=== PATIENT | male | born 1975 | race African-American/Black ===

== ENCOUNTER 2017-04-22 04:11 | Emergency (ER) | payer OTHER ==
[2017-04-22 04:43] VITALS: TEMP 97.4
[2017-04-22] MEDS ORDERED: Lactated Ringer's 1,000 ML IV STA (05:04)
[2017-04-22] MEDS ORDERED: Lactated Ringer's 1,000 ML ONE (05:32)
[2017-04-22 05:39] LABS: BASO % 0.6 % (0.0-2.0); EOS # 0.1 K/uL (0.0-0.7); EOS % 0.9 % (0.0-4.0); HEMATOCRIT 41.4 % (35.0-51.0); LYMPH # 2.4 K/uL (1.0-4.3); LYMPH % 27.4 % (20.0-40.0); MEAN CELL VOLUME 84.3 fL (80.0-94.0); MEAN CORPUSCULAR HEMOGLOBIN 28.8 pg (27.0-31.0); MEAN CORPUSCULAR HGB CONC 34.1 g/dL (33.0-37.0); MEAN PLATELET VOLUME 6.4 fL (7.2-11.7); MONO # 0.9 K/uL (0.0-0.8); MONO % 10.7 % (0.0-10.0); NRBC % 0.1 % (0.0-2.0); RED CELL DISTRIBUTION WIDTH 13.4 % (11.5-14.5); WHITE BLOOD COUNT 8.7 K/uL (4.8-10.8)
[2017-04-22 05:55] LABS: RBC URINE 20 /hpf (0-3); URINE BACTERIA RARE (<OCC); URINE BILIRUBIN NEGATIVE (NEGATIVE); URINE COLOR Yellow (YELLOW); URINE GLUCOSE (UA) NORMAL (Normal); URINE KETONE NEGATIVE (NEGATIVE); URINE LEUKOCYTE ESTERASE 1+ Leu/uL (Negative); URINE PROTEIN 1+ mg/dL (NEGATIVE); URINE UROBILINOGEN NORMAL mg/dL (0.2-1.0); WBC URINE 4 /hpf (0-5)
[2017-04-22 05:59] LABS: ALB/GLOB RATIO 1.1 (1.0-2.1); ALKALINE PHOSPHATASE 73 U/L (38-126); ALT/SGPT 48 U/L (21-72); AST/SGOT 31 U/L (17-59); BILIRUBIN,TOTAL 0.5 mg/dL (0.2-1.3); BLOOD UREA NITROGEN 15 mg/dL (9-20); CALCIUM 8.3 mg/dl (8.6-10.4); CARBON DIOXIDE 24 mmol/L (22-30); CHLORIDE 100 mmol/L (98-107); GFR AFRICAN-AMERICAN > 60; GLUCOSE,RANDOM 122 mg/dL (75-110); POTASSIUM 3.5 mmol/L (3.6-5.2); SODIUM 136 mmol/L (132-148); TOTAL PROTEIN 7.8 g/dL (6.3-8.3)
--- NOTE | 2017-04-22 06:01 | C.PDOC ---
History Of Present Illness 42 year old male presents to the ER with a complaint of sudden onset of RUQ pain and nausea. Denies UTI symptoms, vomiting, diarrhea or cough. No past h/o of similar pain. Time Seen by Provider: 04/22/17 04:42 Chief Complaint (Nursing): Abdominal Pain History Per: Patient History/Exam Limitations: no limitations Onset/Duration Of Symptoms: Hrs Current Symptoms Are (Timing): Still Present Location Of Pain/Discomfort: RUQ Radiation Of Pain To:: None Quality Of Discomfort: Unable To Describe Associated Symptoms: Nausea. denies: Fever, Chills, Vomiting, Urinary Symptoms Exacerbating Factors: None Alleviating Factors: None Recent travel outside of the [place]: No Past Medical History Reviewed: Historical Data, Nursing Documentation, Vital Signs Vital Signs: Last Vital Signs Temp 97.4 F L 04/22/17 04:39 Pulse 80 04/22/17 04:39 Resp 20 04/22/17 04:39 BP 159/108 H 04/22/17 04:39 Pulse Ox 99 04/22/17 06:02 - Medical History PMH: Migraine Surgical History: No Surg Hx Family History: States: Unknown Family Hx - Social History Hx Tobacco Use: No Hx Alcohol Use: Yes Hx Substance Use: No - Immunization History Hx Tetanus Toxoid Vaccination: No Hx Influenza Vaccination: Yes Hx Pneumococcal Vaccination: No Review Of Systems Constitutional: Negative for: Fever, Chills Gastrointestinal: Positive for: Nausea, Abdominal Pain. Negative for: Vomiting , Diarrhea, Constipation Genitourinary: Negative for: Dysuria, Hematuria Physical Exam - Physical Exam Appears: Non-toxic, No Acute Distress Skin: Normal Color, Warm, Dry Eye(s): bilateral: Normal Inspection Oral Mucosa: Moist Cardiovascular: Rhythm Regular Respiratory: Normal Breath Sounds, No Rales, No Rhonchi, No Wheezing Gastrointestinal/Abdominal: Bowel Sounds (normal), Soft, Tenderness (Diffusely) , Distention, No Guarding, No Rebound Back: Normal Inspection, No CVA Tenderness Neurological/Psych: Oriented x3, Normal Speech Gait: Steady ED Course And Treatment - Laboratory Results Result Diagrams: 04/22/17 05:20 04/22/17 05:20 O2 Sat by Pulse Oximetry: 99 (Room air) Pulse Ox Interpretation: Normal Progress Note: CT abd/pel, blood work, and urinalysis ordered. IV fluids, toradol, and zofran administered. 0630: Pt reports some improvement of the pain , but still 6/10. Pt is pending Abd/ pelvis CT. Pt is s/o to [facility] for disposition Disposition - Disposition Disposition Time: 06:55 Condition: STABLE Forms: [facility] (Wolof) - Clinical Impression Clinical Impression: Abdominal pain - Scribe Statement The provider has reviewed the documentation as recorded by the Scribe Anjum Brennan All medical record entries made by the Scribe were at my direction and personally dictated by me. I have reviewed the chart and agree that the record accurately reflects my personal performance of the history, physical exam, medical decision making, and the department course for this patient. I have also personally directed, reviewed, and agree with the discharge instructions and disposition. Physician Patient Turnover Patient Signed Over To: Shefali Gaxiola Handoff Comments: Pending Abd Ct and reeval
[2017-04-22 06:02] LABS: URINE BLOOD 2+ (NEGATIVE)
[2017-04-22] MEDS ORDERED: Iodixanol 320 MG/ML 100 ML BOTTLE IV ONE (06:02)
--- NOTE | 2017-04-22 07:12 | CT ---
EXAM: CT Abdomen and Pelvis With Intravenous Contrast EXAM DATE/TIME: 04/22/2017 5:05 AM CLINICAL HISTORY: 42 years old, male; Pain; Abdominal pain; Additional info: Abd pain , epigastric TECHNIQUE: Axial computed tomography images of the abdomen and pelvis with intravenous contrast. All CT scans at this facility use one or more dose reduction techniques, viz.: automated exposure control; ma/kV adjustment per patient size (including targeted exams where dose is matched to indication; i.e. head); or iterative reconstruction technique. Coronal and sagittal reformatted images were created and reviewed. CONTRAST: 100 mL of [id number] administered intravenously. COMPARISON: No relevant prior studies available. FINDINGS: Lower thorax: No acute findings. ABDOMEN: Liver: Mild fatty liver. Gallbladder and bile ducts: Unremarkable. No calcified stones. No ductal dilation. Pancreas: Unremarkable. No mass. No ductal dilation. Spleen: Unremarkable. No splenomegaly. Adrenals: Unremarkable. No mass. Kidneys and ureters: Bilateral renal calculi, larger 4.5 mm on the left. Mild right hydronephrosis secondary to a 5 by 8mm calculus proximal ureter. Subtle decreased right nephrogram. Stomach and bowel: Unremarkable. No dilatation of small or large bowel. No mucosal thickening. Appendix: Normal. PELVIS: Bladder: Unremarkable. No mass. Reproductive: Unremarkable as visualized. ABDOMEN and PELVIS: Intraperitoneal space: Unremarkable. No free air. No significant fluid collection. Bones/joints: No acute fracture. Soft tissues: Bilateral small fat containing inguinal hernias. Vasculature: Unremarkable. No abdominal aortic aneurysm. Lymph nodes: No enlarged lymph nodes. Other findings: Evaluation of the abdomen were a. IMPRESSION: 1. Right mid ureteral calculus with mild hydronephrosis. 2. Bilateral nephrolithiasis.
[2017-04-22 07:33] VITALS: BP 137/97; PULSE 75; RESP 18; O2SAT 98
== END 2017-04-22 07:56 | disposition home or self-care (01) ==
LOC: C.ER 04:11
DX: R10.11 Right upper quadrant pain (principal)
CPT/HCPCS: 74177; 80053; 81001; 83690; 85025; 96374; 96375; 99285; J1885; J2405; J7120; Q9967

== ENCOUNTER 2017-06-09 13:49 | Emergency (ER) | payer OTHER ==
[2017-06-09 14:27] VITALS: BMI 28.1
[2017-06-09] MEDS ORDERED: Belladonna-Phenobarbital PO STA (15:37)
[2017-06-09] MEDS ORDERED: Sodium Chloride 0.9% 1,000 ML IV ONE ×2 (15:37→17:02)
--- NOTE | 2017-06-09 15:44 | C.PDOC ---
History Of Present Illness 42 y/o male presents to the ER complaining of left upper quadrant and epigastric pain which began in the morning. Patient reports that the pain is sharp and non-radiating. Patient states that he took Ibuprofen 800 mg which provided some relief. Patient states that he has a subjective fever and sob. Patient denies having chills,nausea, vomiting, diarrhea,and dysuria. Time Seen by Provider: 06/09/17 14:41 Chief Complaint (Nursing): Abdominal Pain History Per: Patient History/Exam Limitations: no limitations Onset/Duration Of Symptoms: Hrs Current Symptoms Are (Timing): Still Present Severity: Moderate Past Medical History Reviewed: Historical Data, Nursing Documentation, Vital Signs Vital Signs: Last Vital Signs Temp 98.3 F 06/09/17 16:57 Pulse 84 06/09/17 16:57 Resp 20 06/09/17 16:57 BP 168/85 H 06/09/17 16:57 Pulse Ox 100 06/09/17 18:16 - Medical History PMH: Migraine Surgical History: No Surg Hx Family History: States: No Known Family Hx - Social History Hx Tobacco Use: No Hx Alcohol Use: No Hx Substance Use: No - Immunization History Hx Tetanus Toxoid Vaccination: No Hx Influenza Vaccination: Yes Hx Pneumococcal Vaccination: No Review Of Systems Except As Marked, All Systems Reviewed And Found Negative. Constitutional: Positive for: Fever (subjective fever). Negative for: Chills Respiratory: Positive for: Shortness of Breath Gastrointestinal: Positive for: Abdominal Pain. Negative for: Nausea, Vomiting , Diarrhea Genitourinary: Negative for: Dysuria Physical Exam - Physical Exam Appears: Non-toxic, No Acute Distress Skin: Normal Color, Warm Head: Atraumatic, Normacephalic Eye(s): bilateral: Normal Inspection, PERRL Nose: Normal Oral Mucosa: Moist Neck: Supple Chest: Symmetrical Cardiovascular: Rhythm Regular Respiratory: Normal Breath Sounds, No Accessory Muscle Use, No Rales, No Rhonchi , No Wheezing Gastrointestinal/Abdominal: Normal Exam, Soft, Tenderness (tenderness in LUQ and epigastric region), No Distention, Guarding, No Rebound Back: Normal Inspection, No CVA Tenderness Extremity: Normal ROM, No Tenderness, No Calf Tenderness, No Swelling Neurological/Psych: Oriented x3, Normal Speech, Normal Cognition, Normal Motor, Normal Sensation ED Course And Treatment - Laboratory Results Result Diagrams: 06/09/17 15:47 06/09/17 15:47 ECG: Interpreted By Me, Viewed By Me ECG Rhythm: Sinus Rhythm Interpretation Of ECG: no ST elevations/depressions Rate From EC O2 Sat by Pulse Oximetry: 100 (RA) Pulse Ox Interpretation: Normal - Other Rad No standard instances X-Ray: Viewed By Me, Read By Radiologist Interpretation: PROCEDURE: Radiographs of the chest and abdomen (obstructive series). HISTORY: abd pain. COMPARISON: CT abdomen pelvis without contrast performed 04/22/17. TECHNIQUE: AP radiograph of the chest, with upright and supine radiographs of the abdomen. FINDINGS: Examination limited by habitus. CHEST: The cardiomediastinal silhouette appears within normal limits of size. No focal consolidation, significant pleural effusion, or definite pneumothorax identified.Please note that chest x-ray has limited sensitivity for the detection of pulmonary masses. ABDOMEN AND PELVIS: Nonobstructive bowel gas pattern. Moderate constipation. No definite free air. 2 mm left upper quadrant calcification possibly related to the left kidney or debris within bowel. Degenerative changes. IMPRESSION: Moderate constipation. 2 mm left upper quadrant calcification possibly related to the left kidney or debris within bowel. - CT Scan/US No standard instances Other Rad Studies (CT/US): Read By Radiologist CT/US Interpretation: PROCEDURE: CT Abdomen and Pelvis without intravenous contrast. HISTORY: abd pain. COMPARISON: 04/22/2017. TECHNIQUE: Technique. Contrast Dose: That p.o. or IV contrast. Radiation dose: Total exam DLP = 1168 mGy-cm. This CT exam was performed using one or more of the following dose reduction techniques: Automated exposure control, adjustment of the mA and/or kV according to patient size, and/or use of iterative reconstruction technique. FINDINGS: LOWER THORAX: Unremarkable. LIVER: Unremarkable. No gross lesion or ductal dilatation. GALLBLADDER AND BILE DUCTS : Moderately distended gallbladder. Otherwise unremarkable. PANCREAS: Unremarkable. No gross lesion or ductal dilatation. SPLEEN: Unremarkable. ADRENALS: Unremarkable. No mass. KIDNEYS AND URETERS: Nephrolithiasis re- suggested least 5 right renal calculi present. Few were in the left kidney that in the left kidney is at least 5 mm in size midpole. Other at least 5 mm in the right kidney is mid to upper pole. Right hydronephrosis the right extra renal pelviectasis/hydronephrotic component of it appears increased since the prior exam 5 x 8 mm right ureteral obstructing associated calculus at a similar level with exams are at the approximate iliac crest level. Proximal right hydro ureter slightly increased since prior exam. Limited assessment for any renal masses -no gross renal mass is perceived. VASCULATURE: Unremarkable. No aortic aneurysm. BOWEL: Unremarkable. No obstruction. No gross mural thickening. APPENDIX: Unremarkable. Normal appendix. PERITONEUM: Unremarkable. No free fluid. No free air. LYMPH NODES: Unremarkable. No enlarged lymph nodes. BLADDER: Unremarkable. No bladder calculi appreciated. REPRODUCTIVE: Few prostatic calcifications noted. BONES: No acute fracture. Thoraco lumbar spondylosis. OTHER FINDINGS: Bilateral fat only containing groin hernias. IMPRESSION: Bilateral nephrolithiasis calculus burden greater on the right -as present previously. The right ureteral 5 x 8 mm obstructing calculus is similarly positioned. The relative right hydroureter/ right hydronephrosis appears slightly greater. The right extra renal pelviectasis is greater. Medical Decision Making Medical Decision Making: Impression: LUQ and Epigastric Pain Plan: -- Abd and Pelv CT W/O Contrast -- Abdomen X-Ray --ECG --Labs --Urinalysis Test Results -- Normal Troponin Levels Patient with renal colic. Disposition Counseled Patient/Family Regarding: Studies Performed, Diagnosis, Need For Followup, Rx Given - Disposition Referrals: [facility] [Outside] Jada Mercedes MD [Staff Provider] - Disposition: HOME/ ROUTINE Disposition Time: 18:22 Condition: STABLE Additional Instructions: Follow up with your doctor and with Urology. Call for an appointment. You were diagnosed with kidney stones and constipation. Take medication for pain and for constipation. Return to the Emergency Department with any further concerns. Prescriptions: Ciprofloxacin [Cipro] 1 tab PO BID #14 tab Docusate Sodium [Colace] 100 mg PO BID #20 capsule Phosphate Enema [Fleet Enema 135 Ml] 135 ml RC DAILY #2 nma Psyllium Husk/Aspartame [Metamucil Fiber Singles Packet] 3.4 gm PO DAILY #10 powd.pack Tamsulosin HCl [Flomax] 0.4 mg PO DAILY #5 cap.er.24h Instructions: Constipation (ED), Renal Colic (ED) Forms: [employer] (Guamanian) - POA Present On Arrival: None - Clinical Impression Clinical Impression: Abdominal pain, Constipation, Renal colic, bilateral - Scribe Statement The provider has reviewed the documentation as recorded by the Linetteibe Danny Marquez Provider Attestation: All medical record entries made by the Linetteibe were at my direction and personally dictated by me. I have reviewed the chart and agree that the record accurately reflects my personal performance of the history, physical exam, medical decision making, and the department course for this patient. I have also personally directed, reviewed, and agree with the discharge instructions and disposition.
[2017-06-09 15:50] LABS: BASO # 0.1 K/uL (0.0-0.2); BASO % 0.5 % (0.0-2.0); EOS # 0.1 K/uL (0.0-0.7); EOS % 0.4 % (0.0-4.0); HEMOGLOBIN 14.5 g/dL (12.0-18.0); LYMPH % 13.4 % (20.0-40.0); MEAN CELL VOLUME 83.6 fL (80.0-94.0); MEAN CORPUSCULAR HEMOGLOBIN 28.3 pg (27.0-31.0); MEAN CORPUSCULAR HGB CONC 33.9 g/dL (33.0-37.0); MEAN PLATELET VOLUME 6.6 fL (7.2-11.7); MONO % 6.7 % (0.0-10.0); RBC 5.13 Mil/uL (4.40-5.90); RED CELL DISTRIBUTION WIDTH 13.7 % (11.5-14.5); WHITE BLOOD COUNT 15.2 K/uL (4.8-10.8)
[2017-06-09] MEDS ORDERED: Belladonna-Phenobarbital ONE (15:53)
[2017-06-09 16:03] LABS: ALBUMIN 4.4 g/dL (3.5-5.0); ALT/SGPT 43 U/L (21-72); AST/SGOT 29 U/L (17-59); CALCIUM 8.8 mg/dl (8.6-10.4); GFR AFRICAN-AMERICAN > 60; GFR NON-AFRICAN AMERICAN > 60; LIPASE 62 U/L (23-300)
[2017-06-09 16:05] LABS: ALB/GLOB RATIO 1.1 (1.0-2.1); BLOOD UREA NITROGEN 10 mg/dL (9-20)
--- NOTE | 2017-06-09 16:32 | RAD ---
PROCEDURE: Radiographs of the chest and abdomen (obstructive series) HISTORY: abd pain COMPARISON: CT abdomen pelvis without contrast performed 04/22/17 TECHNIQUE: AP radiograph of the chest, with upright and supine radiographs of the abdomen. FINDINGS: Examination limited by habitus. CHEST: The cardiomediastinal silhouette appears within normal limits of size. No focal consolidation, significant pleural effusion, or definite pneumothorax identified.Please note that chest x-ray has limited sensitivity for the detection of pulmonary masses. ABDOMEN AND PELVIS: Nonobstructive bowel gas pattern. Moderate constipation. No definite free air. 2 mm left upper quadrant calcification possibly related to the left kidney or debris within bowel. Degenerative changes. IMPRESSION: Moderate constipation. 2 mm left upper quadrant calcification possibly related to the left kidney or debris within bowel.
--- NOTE | 2017-06-09 16:43 | CT ---
PROCEDURE: CT Abdomen and Pelvis without intravenous contrast HISTORY: abd pain COMPARISON: 04/22/2017 TECHNIQUE: Technique. Contrast Dose: That p.o. or IV contrast Radiation dose: Total exam DLP = 1168 mGy-cm. This CT exam was performed using one or more of the following dose reduction techniques: Automated exposure control, adjustment of the mA and/or kV according to patient size, and/or use of iterative reconstruction technique. FINDINGS: LOWER THORAX: Unremarkable. LIVER: Unremarkable. No gross lesion or ductal dilatation. GALLBLADDER AND BILE DUCTS: Moderately distended gallbladder. Otherwise unremarkable PANCREAS: Unremarkable. No gross lesion or ductal dilatation. SPLEEN: Unremarkable. ADRENALS: Unremarkable. No mass. KIDNEYS AND URETERS: Nephrolithiasis re- suggested least 5 right renal calculi present. Few were in the left kidney that in the left kidney is at least 5 mm in size midpole. Other at least 5 mm in the right kidney is mid to upper pole. Right hydronephrosis the right extra renal pelviectasis/hydronephrotic component of it appears increased since the prior exam 5 x 8 mm right ureteral obstructing associated calculus at a similar level with exams are at the approximate iliac crest level. Proximal right hydro ureter slightly increased since prior exam. Limited assessment for any renal masses -no gross renal mass is perceived VASCULATURE: Unremarkable. No aortic aneurysm. BOWEL: Unremarkable. No obstruction. No gross mural thickening. APPENDIX: Unremarkable. Normal appendix. PERITONEUM: Unremarkable. No free fluid. No free air. LYMPH NODES: Unremarkable. No enlarged lymph nodes. BLADDER: Unremarkable. No bladder calculi appreciated REPRODUCTIVE: Few prostatic calcifications noted. BONES: No acute fracture. Thoraco lumbar spondylosis OTHER FINDINGS: Bilateral fat only containing groin hernias IMPRESSION: Bilateral nephrolithiasis calculus burden greater on the right -as present previously The right ureteral 5 x 8 mm obstructing calculus is similarly positioned. The relative right hydroureter/ right hydronephrosis appears slightly greater. The right extra renal pelviectasis is greater.
[2017-06-09 17:12] LABS: B-TYPE NATRIURETIC PEPTIDE 52.7 pg/mL (0-450)
[2017-06-09 17:43] LABS: SQUAMOUS EPITHIAL < 1 /hpf (0-5); URINE BACTERIA OCC (<OCC); URINE BILIRUBIN NEGATIVE (NEGATIVE); URINE BLOOD 1+ (NEGATIVE); URINE CLARITY Clear (Clear); URINE COLOR Yellow (YELLOW); URINE GLUCOSE (UA) NORMAL (Normal); URINE NITRATE NEGATIVE (NEGATIVE); URINE PROTEIN NEGATIVE (NEGATIVE); URINE UROBILINOGEN NORMAL mg/dL (0.2-1.0)
[2017-06-09 17:44] LABS: URINE LEUKOCYTE ESTERASE TRACE Leu/uL (Negative)
[2017-06-09 17:49] LABS: BARBITURATES, UR NEGATIVE (NEGATIVE); BENZODIAZEPINES, UR NEGATIVE (NEGATIVE); OPIATES, UR POSITIVE (NEGATIVE); PHENCYCLIDINE, UR NEGATIVE (NEGATIVE)
[2017-06-09] MEDS ORDERED: Lidocaine 122 MG in Sodium Chloride 0.9% 100 ML IV STA (18:11)
[2017-06-09 18:49] VITALS: BP 150/98; PULSE 90; RESP 16; TEMP 98.7; O2SAT 99
--- NOTE | 2017-06-11 10:41 | CARD ---
APPROVED REPORT EKG Measurement Heart [id number] <Conclusion> Normal sinus rhythm Normal ECG
== END 2017-06-09 18:48 | disposition home or self-care (01) ==
LOC: C.ER 13:49
DX: K59.00 Constipation, unspecified (principal); N23 Unspecified renal colic; R10.12 Left upper quadrant pain; R10.13 Epigastric pain
CPT/HCPCS: 74022; 74176; 80053; 80320; 80324; 80345; 80346; 80349; 80353; 80358; 80361; 81001; 83690; 83880; 83992; 84484; 85025; 96374; 96375; 99285; J1885; J2270; J7040

== ENCOUNTER 2017-07-02 07:15 | Emergency (ER) | payer OTHER ==
[2017-07-02 07:16] VITALS: BMI 28.1
[2017-07-02 07:29] VITALS: RESP 16; O2SAT 100
[2017-07-02 08:09] LABS: BASO # 0.1 K/uL (0.0-0.2); BASO % 0.8 % (0.0-2.0); EOS # 0.1 K/uL (0.0-0.7); EOS % 0.7 % (0.0-4.0); HEMOGLOBIN 14.9 g/dL (12.0-18.0); LYMPH # 2.1 K/uL (1.0-4.3); LYMPH % 22.8 % (20.0-40.0); MEAN CELL VOLUME 83.6 fL (80.0-94.0); MEAN CORPUSCULAR HEMOGLOBIN 29.8 pg (27.0-31.0); MEAN CORPUSCULAR HGB CONC 35.6 g/dL (33.0-37.0); MEAN PLATELET VOLUME 6.5 fL (7.2-11.7); MONO # 0.8 K/uL (0.0-0.8); MONO % 8.8 % (0.0-10.0); NEUT # 6.3 K/uL (1.8-7.0); NEUT % 66.9 % (50.0-75.0); RBC 5.01 Mil/uL (4.40-5.90); RED CELL DISTRIBUTION WIDTH 13.4 % (11.5-14.5); WHITE BLOOD COUNT 9.4 K/uL (4.8-10.8)
[2017-07-02 08:27] LABS: ALB/GLOB RATIO 1.2 (1.0-2.1); ALBUMIN 4.4 g/dL (3.5-5.0); CALCIUM 9.1 mg/dl (8.6-10.4); GFR AFRICAN-AMERICAN > 60; GFR NON-AFRICAN AMERICAN > 60; LIPASE 61 U/L (23-300)
[2017-07-02 08:28] LABS: ALT/SGPT 37 U/L (21-72); AST/SGOT 31 U/L (17-59); BLOOD UREA NITROGEN 11 mg/dL (9-20)
[2017-07-02 09:50] LABS: SQUAMOUS EPITHIAL < 1 /hpf (0-5); URINE BACTERIA RARE (<OCC); URINE BILIRUBIN NEGATIVE (NEGATIVE); URINE BLOOD 1+ (NEGATIVE); URINE CLARITY Clear (Clear); URINE COLOR Straw (YELLOW); URINE GLUCOSE (UA) NORMAL (Normal); URINE LEUKOCYTE ESTERASE NEG Leu/uL (Negative); URINE NITRATE NEGATIVE (NEGATIVE); URINE PROTEIN NEGATIVE (NEGATIVE); URINE UROBILINOGEN NORMAL mg/dL (0.2-1.0)
--- NOTE | 2017-07-02 10:34 | CT ---
PROCEDURE: CT Abdomen and Pelvis without Oral or IV contrast. HISTORY: right flank pain COMPARISON: CT abdomen pelvis without contrast performed 06/09/17 TECHNIQUE: Contiguous axial images of the abdomen and pelvis. No oral or IV contrast administered. Coronal and Sagittal reformats generated and reviewed. Radiation dose: Total exam DLP = 984.00 mGy-cm. This CT exam was performed using one or more of the following dose reduction techniques: Automated exposure control, adjustment of the mA and/or kV according to patient size, and/or use of iterative reconstruction technique. FINDINGS: There is limited evaluation of the solid organs without the administration of IV contrast. LOWER THORAX: No visible consolidation, pleural effusion, or pneumothorax. LIVER: Unremarkable unenhanced appearance. GALLBLADDER AND BILE DUCTS: Unremarkable unenhanced appearance. PANCREAS: Unremarkable unenhanced appearance. SPLEEN: Unremarkable unenhanced appearance. ADRENALS: Unremarkable unenhanced appearance. KIDNEYS AND URETERS: 5 mm distal right ureteral calculus (series 3, image 130) with proximal hydroureteronephrosis. Additional tiny (less than 4 mm) right greater than left nonobstructing calculi. No left-sided hydronephrosis. BLADDER: The urinary bladder appears unremarkable. REPRODUCTIVE: Unremarkable. APPENDIX: The appendix appears within normal limits of caliber. No secondary signs of acute appendicitis. BOWEL: The stomach is nondistended. Lack of oral contrast limits evaluation for bowel pathology. The bowel loops appear within normal limits of caliber without evidence of intestinal obstruction. PERITONEUM: No significant free fluid. No definite free air. LYMPH NODES: No bulky lymphadenopathy identified. VASCULATURE: No aortic aneurysm. BONES: Degenerative changes of the spine. OTHER FINDINGS: Bilateral fat containing inguinal hernias. IMPRESSION: 5 mm distal right ureteral calculus with proximal hydroureteronephrosis. Additional tiny (less than 4 mm) right greater than left nonobstructing calculi. No left-sided hydronephrosis.
[2017-07-02 11:06] VITALS: BP 141/89; PULSE 73; TEMP 98.9
--- NOTE | 2017-07-02 12:53 | C.PDOC ---
History Of Present Illness 42 y/o male presents to ED with complaints of right flank pain "for couple of days" with associated nausea. Patient was seen at ED 2 weeks ago and diagnosed with Kidney stones and admits to not following up with Urology. Patient denies fever, chills, vomiting, dysuria, hematuria or any other complaints at this time. Chief Complaint (Nursing): Male Genitourinary History Per: Patient History/Exam Limitations: no limitations Onset/Duration Of Symptoms: Days Current Symptoms Are (Timing): Still Present Quality Of Discomfort: "Pain" Associated Symptoms: Nausea. denies: Urinary Symptoms Past Medical History Reviewed: Historical Data, Nursing Documentation, Vital Signs Vital Signs: Last Vital Signs Temp 98.9 F 07/02/17 11:05 Pulse 73 07/02/17 11:05 Resp 16 07/02/17 11:05 BP 141/89 07/02/17 11:05 Pulse Ox 100 07/02/17 12:54 - Medical History PMH: Migraine Surgical History: No Surg Hx Family History: States: No Known Family Hx - Social History Hx Tobacco Use: No Hx Alcohol Use: No Hx Substance Use: No - Immunization History Hx Tetanus Toxoid Vaccination: No Hx Influenza Vaccination: Yes Hx Pneumococcal Vaccination: No Review Of Systems Constitutional: Negative for: Fever, Chills Respiratory: Negative for: Cough Gastrointestinal: Positive for: Nausea, Other (Flank pain). Negative for: Vomiting, Abdominal Pain Genitourinary: Negative for: Dysuria, Hematuria Skin: Negative for: Rash Physical Exam - Physical Exam Appears: Non-toxic, No Acute Distress Skin: Warm, Dry Head: Atraumatic, Normacephalic Oral Mucosa: Moist Neck: Normal ROM, Supple Cardiovascular: Rhythm Regular Respiratory: Normal Breath Sounds, No Rales, No Rhonchi, No Wheezing Gastrointestinal/Abdominal: Soft, No Tenderness, No Guarding, No Rebound Back: CVA Tenderness (Right) Neurological/Psych: Oriented x3 ED Course And Treatment - Laboratory Results Result Diagrams: 07/02/17 08:05 07/02/17 08:05 O2 Sat by Pulse Oximetry: 100 (RA) Pulse Ox Interpretation: Normal Disposition - Disposition Disposition: HOME/ ROUTINE Disposition Time: 10:40 Condition: IMPROVED Additional Instructions: Thank you for letting us take care of you today. The emergency medical care you received today was directed at your acute symptoms. If you were prescribed any medication, please fill it and take as directed. It may take several days for your symptoms to resolve. Return to the Emergency Department if your symptoms worsen, do not improve, or if you have any other problems. Please contact your doctor or call one of the physicians/clinics you have been referred to that are listed on the Patient Visit Information form that is included in your discharge packet. Bring any paperwork you were given at discharge with you along with any medications you are taking to your follow up visit. Our treatment cannot replace ongoing medical care by a primary care provider (PCP) outside of the emergency department. Thank you for allowing the [facility] team to be part of your care today. Please follow up with the urologist in 2-3 days for re-evaluation and further management. Prescriptions: Ibuprofen [Motrin] 600 mg PO Q6 PRN #20 tab PRN Reason: Pain, Moderate (4-7) Tamsulosin [Flomax] 0.4 mg PO DAILY #7 cap Instructions: Kidney Stones (ED), How to Strain Your Urine (ED) Forms: [employer] (Mongolian) - Clinical Impression Clinical Impression: Kidney stones - Scribe Statement The provider has reviewed the documentation as recorded by the Scribe Anselmo Lomeli All medical record entries made by the Linetteibe were at my direction and personally dictated by me. I have reviewed the chart and agree that the record accurately reflects my personal performance of the history, physical exam, medical decision making, and the department course for this patient. I have also personally directed, reviewed, and agree with the discharge instructions and disposition.
== END 2017-07-02 11:05 | disposition home or self-care (01) ==
LOC: C.ER 07:15
DX: N13.2 Hydronephrosis with renal and ureteral calculous obstruction (principal); Z87.442 Personal history of urinary calculi

== ENCOUNTER 2017-10-27 11:39 | Observation (INO) | payer OTHER ==
[2017-10-27 11:39] VITALS: BMI 28.1
[2017-10-27 12:09] LABS: BASO # 0.1 K/uL (0.0-0.2); BASO % 1.1 % (0.0-2.0); EOS % 0.4 % (0.0-4.0); HEMOGLOBIN 15.1 g/dL (12.0-18.0); LYMPH # 2.5 K/uL (1.0-4.3); LYMPH % 23.8 % (20.0-40.0); MEAN CELL VOLUME 83.5 fL (80.0-94.0); MEAN CORPUSCULAR HEMOGLOBIN 29.7 pg (27.0-31.0); MEAN CORPUSCULAR HGB CONC 35.5 g/dL (33.0-37.0); MONO # 0.9 K/uL (0.0-0.8); MONO % 8.6 % (0.0-10.0); NEUT # 6.9 K/uL (1.8-7.0); NEUT % 66.1 % (50.0-75.0); NRBC % 0.1 % (0.0-2.0); RBC 5.09 Mil/uL (4.40-5.90); RED CELL DISTRIBUTION WIDTH 13.8 % (11.5-14.5); WHITE BLOOD COUNT 10.4 K/uL (4.8-10.8)
[2017-10-27 12:16] LABS: INR 1.1; PROTHROMBIN TIME 11.6 SECONDS (9.7-12.2)
[2017-10-27 12:27] LABS: ALB/GLOB RATIO 1.1 (1.0-2.1); ALBUMIN 4.4 g/dL (3.5-5.0); ALT/SGPT 22 U/L (21-72); AST/SGOT 28 U/L (17-59); BLOOD UREA NITROGEN 13 mg/dL (9-20); CALCIUM 9.8 mg/dl (8.6-10.4); GFR AFRICAN-AMERICAN > 60; GFR NON-AFRICAN AMERICAN > 60
--- NOTE | 2017-10-27 12:36 | RAD ---
PROCEDURE: CHEST RADIOGRAPH, 1 VIEW HISTORY: CHEST PAIN COMPARISON: None available. FINDINGS: LUNGS: Clear. PLEURA: No pneumothorax or pleural fluid seen. CARDIOVASCULAR: No radiographic findings to suggest acute or significant cardiovascular disease. OSSEOUS STRUCTURES: No significant abnormalities. VISUALIZED UPPER ABDOMEN: Normal. OTHER FINDINGS: None. IMPRESSION: No active disease.
--- NOTE | 2017-10-27 13:00 | C.PDOC ---
History Of Present Illness <AllenWilberAngelica L - Last Filed: 10/27/17 14:04> <Pedro Sun - Last Filed: 10/29/17 14:18> 42 y/o male brought to ED by EMS with complaints of sharp chest pain since earlier this morning. Patient was given 4 aspirin on route by EMS and denies sob , nausea, vomiting, back pain or any other complaints at this time. (Angelica Allen) History Per: Patient History/Exam Limitations: no limitations Onset/Duration Of Symptoms: Days Current Symptoms Are (Timing): Still Present <AlejandroWilberAngelica L - Last Filed: 10/27/17 14:04> <Pedro Sun - Last Filed: 10/29/17 14:18> Time Seen by Provider: 10/27/17 12:15 Chief Complaint (Nursing): Chest Pain Past Medical History Reviewed: Historical Data, Nursing Documentation, Vital Signs - Medical History PMH: Migraine Surgical History: No Surg Hx Family History: States: No Known Family Hx - Social History Hx Tobacco Use: No Hx Alcohol Use: No Hx Substance Use: No - Immunization History Hx Tetanus Toxoid Vaccination: No Hx Influenza Vaccination: Yes Hx Pneumococcal Vaccination: No <AllenWilberAngelica L - Last Filed: 10/27/17 14:04> Vital Signs: Last Vital Signs Temp 98.6 F 10/29/17 07:30 Pulse 66 10/29/17 09:18 Resp 20 10/29/17 07:30 BP 139/84 10/29/17 09:18 Pulse Ox 97 10/29/17 07:30 Review Of Systems Constitutional: Negative for: Fever, Chills Cardiovascular: Positive for: Chest Pain. Negative for: Palpitations Respiratory: Negative for: Shortness of Breath Gastrointestinal: Negative for: Nausea, Vomiting Skin: Negative for: Rash <AlejandroWilberAngelica L - Last Filed: 10/27/17 14:04> Physical Exam - Physical Exam Appears: Non-toxic, No Acute Distress Skin: Warm, Dry, No Rash Head: Atraumatic, Normacephalic Eye(s): bilateral: Normal Inspection Oral Mucosa: Moist Neck: Normal ROM, Supple Chest: Tenderness (midsternal) Cardiovascular: Rhythm Regular Respiratory: Normal Breath Sounds, No Rales, No Rhonchi, No Wheezing Gastrointestinal/Abdominal: Soft, Tenderness (Epigastric), No Guarding, No Rebound Back: No CVA Tenderness, No Paraspinal Tenderness Neurological/Psych: Oriented x3, Normal Speech, Normal Cognition <Angelica Allen - Last Filed: 10/27/17 14:04> ED Course And Treatment - Laboratory Results Result Diagrams: 10/27/17 12:03 10/27/17 12:03 Lab Interpretation: No Acute Changes ECG: Interpreted By Me, Viewed By Me ECG Rhythm: Sinus Rhythm ECG Interpretation: No Acute Changes Rate From EC O2 Sat by Pulse Oximetry: 95 (RA) Pulse Ox Interpretation: Normal - Radiology CXR: Interpreted by Me, Viewed By Me CXR Interpretation: Yes: No Acute Disease, Heart Size (normal). No: Infiltrates , COPD <Angelica Allen - Last Filed: 10/27/17 14:04> - Laboratory Results Result Diagrams: 10/27/17 12:03 10/27/17 12:03 <Pedro Sun - Last Filed: 10/29/17 14:18> Medical Decision Making <Angelica Allen - Last Filed: 10/27/17 14:04> <Pedro Sun - Last Filed: 10/29/17 14:18> Medical Decision Making: Impression: chest pain Plan: * ECG * CXR * Blood work * Toradol * IV fluids * Drug screen Progress: EKG is normal sinus rhythm CXR shows no active disease Labs reviewed. Negative troponin Patient remained well and hemodynamicall stable Case discussed with DR Gutierrez who accepted patient to tele-obs admission ( Angelica Allen) Disposition - Disposition Disposition Time: 13:00 - POA Present On Arrival: None <Angelica Allen - Last Filed: 10/27/17 14:04> <Pedro Sun - Last Filed: 10/29/17 14:18> - Disposition Disposition: HOSPITALIZED Condition: STABLE - Clinical Impression Clinical Impression: Chest pain - PA / OIL AND GAS SPECIALIST / Resident Statement / has reviewed & agrees with the documentation as recorded. - Scribe Statement The provider has reviewed the documentation as recorded by the Scribe <Angelica Allen - Last Filed: 10/27/17 14:04> - PA / OIL AND GAS SPECIALIST / Resident Statement /DO has reviewed & agrees with the documentation as recorded. <Pedro Sun - Last Filed: 10/29/17 14:18> - Scribe Statement Anselmo Lomeli All medical record entries made by the Scribe were at my direction and personally dictated by me. I have reviewed the chart and agree that the record accurately reflects my personal performance of the history, physical exam, medical decision making, and the department course for this patient. I have also personally directed, reviewed, and agree with the discharge instructions and disposition. (Angelica Allen) Decision To Admit - Pt Status Changed To: Hospital Disposition Of: Observation - . Bed Request Type: Telemetry Admitting Physician: Ashley Gutierrez <Angelica Allen - Last Filed: 10/27/17 14:04> <Pedro Sun - Last Filed: 10/29/17 14:18> - . Patient Diagnosis: Chest pain
[2017-10-27] MEDS ORDERED: Sodium Chloride 0.9% 1,000 ML ONE (13:18)
[2017-10-27] MEDS: Sodium Chloride 0.9% 1,000 ML IV SCH ×2 (13:31→23:41)
[2017-10-27 13:37] LABS: HDL CHOLESTEROL 37 mg/dL (30-70)
[2017-10-27 13:48] LABS: LDL CHOLESTEROL 154 mg/dL (0-129)
[2017-10-27 14:36] LABS: BARBITURATES, UR NEGATIVE (NEGATIVE); BENZODIAZEPINES, UR NEGATIVE (NEGATIVE); OPIATES, UR NEGATIVE (NEGATIVE); PHENCYCLIDINE, UR NEGATIVE (NEGATIVE)
--- NOTE | 2017-10-27 15:37 | CP.PCM.HP ---
History of Present Illness - History of Present Illness History of Present Illness: PT was lacy to ER co chest painl PMH: Calculus of Kidneys Hydronephrosis Fatty liver Hypercholesterolemia Allergic rhinitis Migraine Vit D Deff Bursitis Low back pain Pre-diabetes Traumatic brain injury Surgical Hx: Knee surgery Family Hx: None Social Hx: Neg. Smoke + tobacco chew Allergies: nkda Medication: Melatonin 3mg QHS Omeprazole 40 qd Ulracet 325-37.5mg BID Topamax 50mg bid Ibruprofen 800 bid Past Patient History - Infectious Disease Hx of Infectious Diseases: None - Past Social History Smoking Status: Never Smoked - NEUROLOGICAL Hx Migraine: Yes - MUSCULOSKELETAL/RHEUMATOLOGICAL Other/Comment: BACK AND KNEE PAIN - PSYCHIATRIC Hx Substance Use: No - SURGICAL HISTORY Hx Surgeries: Yes Hx Orthopedic Surgery: Yes Other/Comment: knee surgery x4 - ANESTHESIA Hx Anesthesia: Yes Hx Anesthesia Reactions: No Meds Allergies/Adverse Reactions: Allergies Allergy/AdvReac Type Severity Reaction Status Date / Time No Known Allergies Allergy Verified 10/27/17 11:52 Results - Vital Signs Recent Vital Signs: Last Vital Signs Temp 98.1 F 10/27/17 13:49 Pulse 78 10/27/17 14:25 Resp 20 10/27/17 14:25 BP 140/81 10/27/17 14:25 Pulse Ox 95 10/27/17 14:30 - Labs Result Diagrams: 10/27/17 12:03 10/27/17 12:03 Labs: Laboratory Results - last 24 hr 10/27/17 10/27/17 10/27/17 12:03 12:03 12:03 WBC 10.4 RBC 5.09 Hgb 15.1 Hct 42.5 MCV 83.5 MCH 29.7 MCHC 35.5 RDW 13.8 Plt Count 334 MPV 7.0 L Neut % (Auto) 66.1 Lymph % (Auto) 23.8 [place] % (Auto) 8.6 Eos % (Auto) 0.4 Baso % (Auto) 1.1 Neut # (Auto) 6.9 Lymph # (Auto) 2.5 [place] # (Auto) 0.9 H Eos # (Auto) 0.0 Baso # (Auto) 0.1 PT 11.6 INR 1.1 APTT 44 H Sodium 141 Potassium 4.4 Chloride 101 Carbon Dioxide 28 Anion Gap 15 BUN 13 Creatinine 0.8 Est GFR ( Amer) > 60 Est GFR (Non-Af Amer) > 60 Random Glucose 122 H Calcium 9.8 Total Bilirubin 0.5 AST 28 ALT 22 Alkaline Phosphatase 93 Troponin I < 0.0120 Total Protein 8.3 Albumin 4.4 Globulin 3.9 Albumin/Globulin Ratio 1.1 Triglycerides 104 Cholesterol 210 H LDL Cholesterol Direct 154 H HDL Cholesterol 37 Urine Opiates Screen Urine Methadone Screen Ur Barbiturates Screen Ur Phencyclidine Scrn Ur Amphetamines Screen U Benzodiazepines Scrn U Oth Cocaine Metabols U Cannabinoids Screen 10/27/17 13:47 WBC RBC Hgb Hct MCV MCH MCHC RDW Plt Count MPV Neut % (Auto) Lymph % (Auto) [place] % (Auto) Eos % (Auto) Baso % (Auto) Neut # (Auto) Lymph # (Auto) [place] # (Auto) Eos # (Auto) Baso # (Auto) PT INR APTT Sodium Potassium Chloride Carbon Dioxide Anion Gap BUN Creatinine Est GFR ( Amer) Est GFR (Non-Af Amer) Random Glucose Calcium Total Bilirubin AST ALT Alkaline Phosphatase Troponin I Total Protein Albumin Globulin Albumin/Globulin Ratio Triglycerides Cholesterol LDL Cholesterol Direct HDL Cholesterol Urine Opiates Screen Negative Urine Methadone Screen Negative Ur Barbiturates Screen Negative Ur Phencyclidine Scrn Negative Ur Amphetamines Screen Negative U Benzodiazepines Scrn Negative U Oth Cocaine Metabols Negative U Cannabinoids Screen Negative
[2017-10-27] MEDS: Enoxaparin 40 mg Syringe SC SCH (16:38)
[2017-10-27] MEDS: Metoprolol Succinate 50 mg XL Tab PO SCH (17:29)
--- NOTE | 2017-10-28 07:47 | CP.PCM.CON ---
History of Present Illness - History of Present Illness History of Present Illness: Patient seen and evaluated Admitted for chest pain Scheduled for stress test and ECHO in am Past Patient History - Infectious Disease Hx of Infectious Diseases: None - Past Social History Smoking Status: Never Smoked - NEUROLOGICAL Hx Migraine: Yes - MUSCULOSKELETAL/RHEUMATOLOGICAL Other/Comment: BACK AND KNEE PAIN - PSYCHIATRIC Hx Substance Use: No - SURGICAL HISTORY Hx Surgeries: Yes Hx Orthopedic Surgery: Yes Other/Comment: knee surgery x4 - ANESTHESIA Hx Anesthesia: Yes Hx Anesthesia Reactions: No Meds Allergies/Adverse Reactions: Allergies Allergy/AdvReac Type Severity Reaction Status Date / Time No Known Allergies Allergy Verified 10/27/17 11:52 - Medications Medications: Current Medications Aspirin (Ecotrin) 81 mg PO DAILY [facility] Enoxaparin Sodium (Lovenox) 40 mg SC DAILY [facility] Last Admin: 10/27/17 16:38 Dose: 40 mg Sodium Chloride (Sodium Chloride 0.9%) 1,000 mls @ 100 mls/hr IV .Q10H [facility] Last Admin: 10/27/17 23:41 Dose: 100 mls/hr Metoprolol Succinate (Toprol Xl) 50 mg PO BID [facility] Last Admin: 10/27/17 17:29 Dose: 50 mg Rosuvastatin Calcium (Crestor) 20 mg PO HS [facility] Last Admin: 10/27/17 21:23 Dose: 20 mg Results - Vital Signs Recent Vital Signs: Last Vital Signs Temp 98.3 F 10/28/17 04:17 Pulse 60 10/28/17 04:17 Resp 20 10/28/17 04:17 BP 122/84 10/28/17 04:17 Pulse Ox 97 10/28/17 04:17 - Labs Result Diagrams: 10/27/17 12:03 10/27/17 12:03 Labs: Laboratory Results - last 24 hr 10/27/17 10/27/17 10/27/17 12:03 12:03 12:03 WBC 10.4 RBC 5.09 Hgb 15.1 Hct 42.5 MCV 83.5 MCH 29.7 MCHC 35.5 RDW 13.8 Plt Count 334 MPV 7.0 L Neut % (Auto) 66.1 Lymph % (Auto) 23.8 [place] % (Auto) 8.6 Eos % (Auto) 0.4 Baso % (Auto) 1.1 Neut # (Auto) 6.9 Lymph # (Auto) 2.5 [place] # (Auto) 0.9 H Eos # (Auto) 0.0 Baso # (Auto) 0.1 PT 11.6 INR 1.1 APTT 44 H Sodium 141 Potassium 4.4 Chloride 101 Carbon Dioxide 28 Anion Gap 15 BUN 13 Creatinine 0.8 Est GFR ( Amer) > 60 Est GFR (Non-Af Amer) > 60 Random Glucose 122 H Calcium 9.8 Total Bilirubin 0.5 AST 28 ALT 22 Alkaline Phosphatase 93 Troponin I < 0.0120 Total Protein 8.3 Albumin 4.4 Globulin 3.9 Albumin/Globulin Ratio 1.1 Triglycerides 104 Cholesterol 210 H LDL Cholesterol Direct 154 H HDL Cholesterol 37 Urine Opiates Screen Urine Methadone Screen Ur Barbiturates Screen Ur Phencyclidine Scrn Ur Amphetamines Screen U Benzodiazepines Scrn U Oth Cocaine Metabols U Cannabinoids Screen 10/27/17 10/28/17 13:47 06:48 WBC RBC Hgb Hct MCV MCH MCHC RDW Plt Count MPV Neut % (Auto) Lymph % (Auto) [place] % (Auto) Eos % (Auto) Baso % (Auto) Neut # (Auto) Lymph # (Auto) [place] # (Auto) Eos # (Auto) Baso # (Auto) PT INR APTT Sodium Potassium Chloride Carbon Dioxide Anion Gap BUN Creatinine Est GFR ( Amer) Est GFR (Non-Af Amer) Random Glucose Calcium Total Bilirubin AST ALT Alkaline Phosphatase Troponin I < 0.0120 Total Protein Albumin Globulin Albumin/Globulin Ratio Triglycerides Cholesterol LDL Cholesterol Direct HDL Cholesterol Urine Opiates Screen Negative Urine Methadone Screen Negative Ur Barbiturates Screen Negative Ur Phencyclidine Scrn Negative Ur Amphetamines Screen Negative U Benzodiazepines Scrn Negative U Oth Cocaine Metabols Negative U Cannabinoids Screen Negative
[2017-10-28] MEDS: Sodium Chloride 0.9% 1,000 ML IV SCH ×2 (09:00→14:30)
[2017-10-28] MEDS: Metoprolol Succinate 50 mg XL Tab PO SCH ×2 (10:01→18:18)
[2017-10-28] MEDS: Enoxaparin 40 mg Syringe SC SCH (10:02)
[2017-10-28 15:31] LABS: CK-MB 1.07 ng/mL (0.0-3.38)
--- NOTE | 2017-10-28 17:21 | CP.PCM.PN ---
Subjective - Date & Time of Evaluation Date of Evaluation: 10/28/17 Time of Evaluation: 17:21 - Subjective Subjective: PT feels comfortable no sob no chest pain awaing for second phase of stress test Objective - Vital Signs/Intake and Output Vital Signs (last 24 hours): Temp Pulse Resp BP Pulse Ox 97.5 F L 68 20 143/97 H 98 10/28/17 09:50 10/28/17 12:00 10/28/17 09:50 10/28/17 09:50 10/28/17 09:50 Intake and Output: 10/28/17 10/28/17 06:59 18:59 Intake Total 800 850 Balance 800 850 - Medications Medications: Current Medications Aspirin (Ecotrin) 81 mg PO DAILY [facility] Last Admin: 10/28/17 10:02 Dose: 81 mg Enoxaparin Sodium (Lovenox) 40 mg SC DAILY [facility] Last Admin: 10/28/17 10:02 Dose: Not Given Sodium Chloride (Sodium Chloride 0.9%) 1,000 mls @ 100 mls/hr IV .Q10H [facility] Last Admin: 10/28/17 14:30 Dose: 100 mls/hr Metoprolol Succinate (Toprol Xl) 50 mg PO BID [facility] Last Admin: 10/28/17 10:01 Dose: 50 mg Rosuvastatin Calcium (Crestor) 20 mg PO HS [facility] Last Admin: 10/27/17 21:23 Dose: 20 mg - Labs Labs: 10/27/17 12:03 10/27/17 12:03 PT 11.6 SECONDS (9.7-12.2) 10/27/17 12:03 INR 1.1 10/27/17 12:03 APTT 44 SECONDS (21-34) H 10/27/17 12:03 - Constitutional Appears: Well, No Acute Distress - Eye Exam Eye Exam: Normal appearance - ENT Exam ENT Exam: Mucous Membranes Moist - Respiratory Exam Respiratory Exam: Clear to Ausculation Bilateral - Cardiovascular Exam Cardiovascular Exam: REGULAR RHYTHM, RRR, +S1, +S2. absent: JVD, Rubs - Extremities Exam Extremities Exam: absent: Joint Swelling Assessment and Plan - Assessment and Plan (Free Text) Assessment: chest pain awing stress test celestino negative times 3 bp ; on b homa elevated cholesterl statin started appreciate cardio input
--- NOTE | 2017-10-28 23:21 | CP.PCM.PN ---
Subjective - Date & Time of Evaluation Date of Evaluation: 10/28/17 Time of Evaluation: 17:45 - Subjective Subjective: Patient seen and evaluated Stress test: Normal ECHO: Normal EF Non cardiac chest pain Medical management Objective - Vital Signs/Intake and Output Vital Signs (last 24 hours): Temp Pulse Resp BP Pulse Ox 98.4 F 69 20 135/83 96 10/28/17 15:10 10/28/17 18:19 10/28/17 15:10 10/28/17 18:19 10/28/17 15:10 Intake and Output: 10/28/17 10/29/17 18:59 06:59 Intake Total 850 Balance 850 - Medications Medications: Current Medications Aspirin (Ecotrin) 81 mg PO DAILY [facility] Last Admin: 10/28/17 10:02 Dose: 81 mg Enoxaparin Sodium (Lovenox) 40 mg SC DAILY [facility] Last Admin: 10/28/17 10:02 Dose: Not Given Sodium Chloride (Sodium Chloride 0.9%) 1,000 mls @ 100 mls/hr IV .Q10H [facility] Last Admin: 10/28/17 14:30 Dose: 100 mls/hr Metoprolol Succinate (Toprol Xl) 50 mg PO BID [facility] Last Admin: 10/28/17 18:18 Dose: 50 mg Rosuvastatin Calcium (Crestor) 20 mg PO HS [facility] Last Admin: 10/28/17 21:04 Dose: 20 mg - Labs Labs: 10/27/17 12:03 10/27/17 12:03 PT 11.6 SECONDS (9.7-12.2) 10/27/17 12:03 INR 1.1 10/27/17 12:03 APTT 44 SECONDS (21-34) H 10/27/17 12:03
[2017-10-29 01:31] VITALS: O2SAT 97
[2017-10-29] MEDS: Sodium Chloride 0.9% 1,000 ML IV SCH (05:15)
[2017-10-29 08:33] VITALS: RESP 20; TEMP 98.6
[2017-10-29 09:19] VITALS: BP 139/84
[2017-10-29] MEDS: Metoprolol Succinate 50 mg XL Tab PO SCH (09:20)
[2017-10-29] MEDS: Enoxaparin 40 mg Syringe SC SCH (09:20)
--- NOTE | 2017-10-29 14:46 | CP.PCM.PN ---
Subjective - Date & Time of Evaluation Date of Evaluation: 10/29/17 Time of Evaluation: 14:44 - Subjective Subjective: PT CLEARED FOR D/C PER DR. JOHNSON. [employer] SYSTEMS MANAGER DISCUSSED ALL D/C PLANS AND INFORMATION WITH PT. RX SENT DIRECTLY TO PT'S PHARMACY AND HE VERBALIZES UNDERSTANDING ON HOW TO TAKE THE NEW MEDS. REFILLS GIVEN FOR FLONASE, ZYRTEC, AND FLOMAX. PT TO F/U WITH DR. JOHNSON IN THE OFFICE WITHIN 1-2 WEEKS. NO FURTHER ORDERS. -FOLLOW UP WITH DR. JOHNSON IN THE OFFICE IN 1-2 WEEKS---CALL THE OFFICE TOMORROW TO MAKE YOUR APPOINTMENT. -FOLLOW UP WITH DR. BA (HEART DOCTOR) IN THE OFFICE WITHIN 4-5 WEEKS---CALL THE OFFICE TO MAKE YOUR APPOINTMENT. -CONTINUE YOUR HOME MEDICATIONS USUAL. YOUR FLOMAX, ZYRTEC, AND FLONASE HAVE BEEN REFILLED. -NEW PRESCRIPTIONS INCLUDE: 1) METOPROLOL (MEDICINE FOR YOUR BLOOD PRESSURE; 50 MG) TAKE 1 TABLET BY MOUTH TWICE A DAY (TAKE DURING THE MORNING AND AGAIN DURING THE EVENING). 2) ROSUVASTATIN (MEDICINE FOR YOUR CHOLESTEROL AND HEART; 20 MG) TAKE 1 TABLET BY MOUTH AT BEDTIME. 3) ASPIRIN 81 MG (TAKE ONE TABLET) BY MOUTH ONCE A DAY. -FOR FURTHER QUESTIONS, CONTACT DR. JOHNSON'S OFFICE. Objective - Vital Signs/Intake and Output Vital Signs (last 24 hours): Temp Pulse Resp BP Pulse Ox 98.6 F 66 20 139/84 97 10/29/17 07:30 10/29/17 09:18 10/29/17 07:30 10/29/17 09:18 10/29/17 07:30 Intake and Output: 10/29/17 10/29/17 06:59 18:59 Intake Total 0 Output Total 1999 Balance 80 - Medications Medications: Current Medications Aspirin (Ecotrin) 81 mg PO DAILY [facility] Last Admin: 10/29/17 09:20 Dose: 81 mg Enoxaparin Sodium (Lovenox) 40 mg SC DAILY [facility] Last Admin: 10/29/17 09:20 Dose: 40 mg Sodium Chloride (Sodium Chloride 0.9%) 1,000 mls @ 100 mls/hr IV .Q10H [facility] Last Admin: 10/29/17 05:15 Dose: Not Given Metoprolol Succinate (Toprol Xl) 50 mg PO BID [facility] Last Admin: 10/29/17 09:20 Dose: 50 mg Rosuvastatin Calcium (Crestor) 20 mg PO [facility] Last Admin: 10/28/17 21:04 Dose: 20 mg - Labs Labs: 10/27/17 12:03 10/27/17 12:03 PT 11.6 SECONDS (9.7-12.2) 10/27/17 12:03 INR 1.1 10/27/17 12:03 APTT 44 SECONDS (21-34) H 10/27/17 12:03
[2017-10-29 14:47] VITALS: PULSE 58
--- NOTE | 2017-10-29 17:16 | CP.PCM.DIS ---
Provider - Provider Date of Admission: 10/27/17 13:02 Attending physician: Ashley Gutierrez MD Time Spent in preparation of Discharge (in minutes): 20 Hospital Course - Lab Results Lab Results: Most Recent Lab Values WBC 10.4 K/uL (4.8-10.8) 10/27/17 12:03 RBC 5.09 Mil/uL (4.40-5.90) 10/27/17 12:03 Hgb 15.1 g/dL (12.0-18.0) 10/27/17 12:03 Hct 42.5 % (35.0-51.0) 10/27/17 12:03 MCV 83.5 fL (80.0-94.0) 10/27/17 12:03 MCH 29.7 pg (27.0-31.0) 10/27/17 12:03 MCHC 35.5 g/dL (33.0-37.0) 10/27/17 12:03 RDW 13.8 % (11.5-14.5) 10/27/17 12:03 Plt Count 334 K/uL (130-400) 10/27/17 12:03 MPV 7.0 fL (7.2-11.7) L 10/27/17 12:03 Neut % (Auto) 66.1 % (50.0-75.0) 10/27/17 12:03 Lymph % (Auto) 23.8 % (20.0-40.0) 10/27/17 12:03 [place] % (Auto) 8.6 % (0.0-10.0) 10/27/17 12:03 Eos % (Auto) 0.4 % (0.0-4.0) 10/27/17 12:03 Baso % (Auto) 1.1 % (0.0-2.0) 10/27/17 12:03 Neut # (Auto) 6.9 K/uL (1.8-7.0) 10/27/17 12:03 Lymph # (Auto) 2.5 K/uL (1.0-4.3) 10/27/17 12:03 [place] # (Auto) 0.9 K/uL (0.0-0.8) H 10/27/17 12:03 Eos # (Auto) 0.0 K/uL (0.0-0.7) 10/27/17 12:03 Baso # (Auto) 0.1 K/uL (0.0-0.2) 10/27/17 12:03 PT 11.6 SECONDS (9.7-12.2) 10/27/17 12:03 INR 1.1 10/27/17 12:03 APTT 44 SECONDS (21-34) H 10/27/17 12:03 Sodium 141 mmol/L (132-148) 10/27/17 12:03 Potassium 4.4 mmol/L (3.6-5.2) 10/27/17 12:03 Chloride 101 mmol/L (98-107) 10/27/17 12:03 Carbon Dioxide 28 mmol/L (22-30) 10/27/17 12:03 Anion Gap 15 (10-20) 10/27/17 12:03 BUN 13 mg/dL (9-20) 10/27/17 12:03 Creatinine 0.8 mg/dL (0.8-1.5) 10/27/17 12:03 Est GFR ( Amer) > 60 10/27/17 12:03 Est GFR (Non-Af Amer) > 60 10/27/17 12:03 Random Glucose 122 mg/dL (75-110) H 10/27/17 12:03 Hemoglobin A1c 5.9 % (4.2-6.5) 10/28/17 06:48 Calcium 9.8 mg/dl (8.6-10.4) 10/27/17 12:03 Total Bilirubin 0.5 mg/dL (0.2-1.3) 10/27/17 12:03 AST 28 U/L (17-59) 10/27/17 12:03 ALT 22 U/L (21-72) 10/27/17 12:03 Alkaline Phosphatase 93 U/L (38-126) 10/27/17 12:03 Total Creatine Kinase 121 U/L (55-170) 10/28/17 14:55 CK-MB (Mass) 1.07 ng/mL (0.0-3.38) 10/28/17 14:55 Troponin I < 0.0120 ng/mL (0.00-0.120) 10/28/17 14:55 Total Protein 8.3 g/dL (6.3-8.3) 10/27/17 12:03 Albumin 4.4 g/dL (3.5-5.0) 10/27/17 12:03 Globulin 3.9 gm/dL (2.2-3.9) 10/27/17 12:03 Albumin/Globulin Ratio 1.1 (1.0-2.1) 10/27/17 12:03 Triglycerides 104 mg/dL (0-149) 10/27/17 12:03 Cholesterol 210 mg/dL (0-199) H 10/27/17 12:03 LDL Cholesterol Direct 154 mg/dL (0-129) H 10/27/17 12:03 HDL Cholesterol 37 mg/dL (30-70) 10/27/17 12:03 Urine Opiates Screen Negative (NEGATIVE) 10/27/17 13:47 Urine Methadone Screen Negative (NEGATIVE) 10/27/17 13:47 Ur Barbiturates Screen Negative (NEGATIVE) 10/27/17 13:47 Ur Phencyclidine Scrn Negative (NEGATIVE) 10/27/17 13:47 Ur Amphetamines Screen Negative (NEGATIVE) 10/27/17 13:47 U Benzodiazepines Scrn Negative (NEGATIVE) 10/27/17 13:47 U Oth Cocaine Metabols Negative (NEGATIVE) 10/27/17 13:47 U Cannabinoids Screen Negative (NEGATIVE) 10/27/17 13:47 - Hospital Course Hospital Course: Pt was admited with co chest pain. Difficult to obtain history form him. However he remained very comfortable with no sign of distress despite the history. PT was ruled out, had a cardiologyst eval by Dr. Ba he also had a negative stress tst. Pt was found to have elevated bp and cholesterol and was treated for that. Discharge Exam - ENT Exam ENT Exam: Mucous Membranes Moist - Respiratory Exam Respiratory Exam: Clear to PA & Lateral, NORMAL BREATHING PATTERN. absent: Rales Discharge Plan - Discharge Medications Prescriptions: Rosuvastatin Calcium [Crestor] 20 mg PO HS #30 tab Aspirin [Ecotrin] 81 mg PO DAILY #30 tabec Tamsulosin HCl [Flomax] 0.4 mg PO DAILY #5 cap.er.24h Fluticasone Propionate [Flonase Allergy Relief] 1 spray NS QID PRN #1 spray.susp PRN Reason: Nasal Congestion Metoprolol Succinate [Toprol XL] 50 mg PO BID #60 tab Cetirizine HCl [Zyrtec] 10 mg PO BID PRN #60 capsule PRN Reason: Allergy Symptoms - Follow Up Plan Condition: STABLE Instructions: Heart Healthy Diet, Chest Pain (DC), Aspirin, Metoprolol, Rosuvastatin, Tamsulosin, Fluticasone (Nasal), Cetirizine (Systemic) Additional Instructions: -FOLLOW UP WITH DR. GUTIERREZ IN THE OFFICE IN 1-2 WEEKS---CALL THE OFFICE TOMORROW TO MAKE YOUR APPOINTMENT. -FOLLOW UP WITH DR. BA (HEART DOCTOR) IN THE OFFICE WITHIN 4-5 WEEKS---CALL THE OFFICE TO MAKE YOUR APPOINTMENT. -CONTINUE YOUR HOME MEDICATIONS USUAL. YOUR FLOMAX, ZYRTEC, AND FLONASE HAVE BEEN REFILLED. -NEW PRESCRIPTIONS INCLUDE: 1) METOPROLOL (MEDICINE FOR YOUR BLOOD PRESSURE; 50 MG) TAKE 1 TABLET BY MOUTH TWICE A DAY (TAKE DURING THE MORNING AND AGAIN DURING THE EVENING). 2) ROSUVASTATIN (MEDICINE FOR YOUR CHOLESTEROL AND HEART; 20 MG) TAKE 1 TABLET BY MOUTH AT BEDTIME. 3) ASPIRIN 81 MG (TAKE ONE TABLET) BY MOUTH ONCE A DAY. -FOR FURTHER QUESTIONS, CONTACT DR. GUTIERREZ'S OFFICE. Referrals: Clark Ba MD [Staff Provider] - Ashley Gutierrez MD [Staff Provider] -
--- NOTE | 2017-10-29 19:32 | CARD ---
APPROVED REPORT EKG Measurement Heart [id number] <Conclusion> Normal sinus rhythm Minimal voltage criteria for LVH, may be normal variant Borderline ECG
--- NOTE | 2017-10-30 04:55 | CARD ---
APPROVED REPORT EXAM: Two-dimensional and M-mode echocardiogram with Doppler and color Doppler. Other Information Quality : TDSRhythm : INDICATION Chest Pain 2D DIMENSIONS IVSd1.0 (0.7-1.1cm)LVDd4.0 (3.9-5.9cm) PWd0.9 (0.7-1.1cm)LVDs2.5 (2.5-4.0cm) FS (%) 38.5 %LVEF (%)69.4 (>50%) M-Mode DIMENSIONS Left Atrium (MM)3.18 (2.5-4.0cm)Aortic Root3.53 (2.2-3.7cm) Aortic Cusp Exc.2.44 (1.5-2.0cm) Mitral Valve MV E Pvdxoztb27.9cm/sMV A Vwlizmie70.5cm/sE/A ratio1.3 TDI E/Lateral E'0.0E/Medial E'0.0 LEFT VENTRICLE The left ventricle is normal size. There is normal left ventricular wall thickness. Left ventricle systolic function is normal. The Ejection Fraction is 65-70%. There is normal LV segmental wall motion. The left ventricular diastolic function is normal. No left ventricle thrombus noted on this study. RIGHT VENTRICLE The right ventricle is normal size. There is normal right ventricular wall thickness. The right ventricular systolic function is normal. ATRIA The left atrium size is normal. The right atrium size is normal. The interatrial septum is intact with no evidence for an atrial septal defect. AORTIC VALVE The aortic valve is normal in structure. No aortic regurgitation is present. There is no aortic valvular stenosis. There is no aortic valvular vegetation. MITRAL VALVE The mitral valve is normal in structure. There is no evidence of mitral valve prolapse. There is no mitral valve stenosis. There is no mitral valve regurgitation noted. TRICUSPID VALVE The tricuspid valve is normal in structure. No tricuspid regurgitation. PULMONIC VALVE The pulmonic valve is not well visualized. There is trace pulmonic valvular regurgitation. GREAT VESSELS The aortic root is normal in size. PERICARDIAL EFFUSION There is no significant pericardial effusion. <Conclusion> Left ventricle systolic function is normal. The Ejection Fraction is 65-70%. No aortic regurgitation is present. There is no mitral valve regurgitation noted. No tricuspid regurgitation. There is trace pulmonic valvular regurgitation.
--- NOTE | 2017-10-30 05:29 | CARD ---
APPROVED REPORT Protocol: PHARMACOLOGICAL STRESS Test Type: LEXISCAN Test Indications: CHEST PAIN Medications: LIST SCAN Medical History: CHEST PAIN Target HR: 177 bpm Resting ECG: NSR Resting Heart Rate: 60 bpm Resting Blood Pressure: 120/78mmHg submaximum (85%): 150 bpm TEST SUMMARY [id number]/78.0. INFUSIONDOSE 100:300.00.01.061/.0. [id number]/70.0. PROCEDURE Pharmacologic stress testing was performed using 0.4mg per 5ml of regadenoson given intravenously over 7-10 seconds. Reversal agent aminophyline 125 mg, given intravenously for Chest Pain. POST EXERCISE Reason for Termination: Protocol Completed Target HR: No Max HR: 61 bpm 51% of Maximum Predicted HR: 177 bpm Exercise duration: 00:30 min:sec, 0 Stage Exercise capacity: 1.0METs Max Blood Pressure: 130/70mmHg Blood Pressure response to exercise: normal resting BP - appropriate response Heart Rate response to exercise: appropriate Chest Pain: No, none Angina index: 0 Arrhythmia: No, none ST Change: No, none Deviation: 0 mm INTERPRETATION Stress EKG Conclusion: NEGATIVE LEXISCAN STRESS TEST NORMAL BP RESPONSE TO LEXISCAN NUCLEAR STUDIES TO READ SEPARATELY EXAM: Myocardial Perfusion STRESS/REST Imaging Protocol The imaging protocol used to acquire images was Stress Tc-99m/rest Tc-99m 1 day Stress Spect myocardial perfusion imaging was performed in supine position 41 minutes following the injection of 13.2 mCi of Tc-99 Myoview. Gated Rest Spect was performed 40 minutes after intravenous 30.8 mCi Tc-99 Myoview injection. The images were gated to evaluate regional wall motion and calculate ventricular ejection fraction.Images were reconstructed using backfilter projection method in short horizontal and verticle long axis. Spect slices were generated. RESTING DATA EDV90.95imXN1.20L/min ESV38.00mlMyocardial Ugzx148.00g Av. Heart Rate61.00bpm EF58.00% STRESS DATA EDV95.90iaGT7.00L/min ESV35.00mlMyocardial Ihjt214.00g EF63.00% Regional WT score at stress:0.00 Regional WM score at stress:0.00 Summed WT score at stress:4.00 Av. Heart Rate67.00bpmSummed WM score at stress:2.00 LV Perf. Quant 17 Seg. SSS0.00 17 Seg. SRS0.00 17 Seg. SDS0.00 Stress Defect Extent (% LAD)0.00Rest Defect Extent (% LAD)0.00Rev. Defect Extent (% LAD)0.00 Stress Defect Extent (% LCX)0.00Rest Defect Extent (% LCX)0.00Rev. Defect Extent (% LCX)0.00 Stress Defect Extent (% RCA)0.00Rest Defect Extent (% RCA)0.00Rev. Defect Extent (% RCA)0.00 Stress Defect Extent (% WADE)0.00Rest Defect Extent (% WADE)0.00Rev. Defect Extent (% WADE)0.00 Other Information Quality:Good IMPRESSION Normal Myocardial Perfusion exercise stress study Left Ventricle LV Function:Left ventricle systolic function is normal. The Ejection Fraction is >55%. Conclusion 1. No stress induced ischemia. Normal stress test.
== END 2017-10-29 14:54 | disposition home or self-care (01) ==
LOC: C.ER 11:39 → C.9E 13:02 → C.6T 13:28
PROVIDERS: ADMIT Internal Medicine; ATTEND Internal Medicine
DX: R07.89 Other chest pain (principal); E78.00 Pure hypercholesterolemia, unspecified; K76.0 Fatty (change of) liver, not elsewhere classified
CPT/HCPCS: 36415; 71045; 78452; 80053; 80061; 80324; 80345; 80346; 80349; 80353; 80358; 80361; 83036; 83992; 84484; 85025; 85610; 85730; 93005; 93017; 93306; 96374; 99285; A9502; G0378; J1650; J1885; J2785; J7030

== ENCOUNTER 2018-05-03 02:41 | Emergency (ER) | payer OTHER ==
[2018-05-03 02:41] VITALS: BMI 28.1
--- NOTE | 2018-05-03 02:52 | C.PDOC ---
History Of Present Illness The patient presents to the ED for evaluation of chest pain which woke him from his sleep earlier tonight. Patient states he took a baby Aspirin prior to arrival. Patient notes he experienced a similar episode in October 2017. He was ev aluated by Dr. Thompson at the time, and had a negative myocardial perfusion scan. Patient denies shortness of breath, nausea, extremity numbness/weakness. Time Seen by Provider: 05/03/18 02:51 History Per: Patient History/Exam Limitations: no limitations Onset/Duration Of Symptoms: Hrs Current Symptoms Are (Timing): Still Present Context: Other (unknown ) Severity: Mild Pain Scale Rating Of: 2 Quality: "Pain" Associated Symptoms: denies: Nausea Modifying Factors: None Exacerbating Factors: None Alleviating Factors: None Recent travel outside of the [place]: No Additional History Per: Patient Past Medical History Reviewed: Historical Data, Nursing Documentation, Vital Signs - Medical History PMH: Migraine Surgical History: No Surg Hx Family History: States: Unknown Family Hx - Social History Hx Tobacco Use: No Hx Alcohol Use: No Hx Substance Use: No - Immunization History Hx Tetanus Toxoid Vaccination: No Hx Influenza Vaccination: Yes Hx Pneumococcal Vaccination: No Review Of Systems Constitutional: Negative for: Fever, Chills Eyes: Negative for: Vision Change Cardiovascular: Positive for: Chest Pain. Negative for: Palpitations Respiratory: Negative for: Cough, Shortness of Breath, SOB with Excertion, Wheezing Gastrointestinal: Negative for: Nausea, Vomiting, Abdominal Pain Musculoskeletal: Negative for: Neck Pain, Shoulder Pain, Arm Pain, Back Pain Skin: Negative for: Rash, Lesions, Jaundice, Bruising Neurological: Negative for: Weakness, Numbness Psych: Negative for: Anxiety Physical Exam - Physical Exam Appears: Non-toxic, No Acute Distress Skin: Warm, Dry Head: Normacephalic Eye(s): bilateral: Normal Inspection Oral Mucosa: Moist Neck: Supple Chest: Symmetrical, No Deformity, No Tenderness Cardiovascular: Rhythm Regular, No Murmur Respiratory: No Rales, No Rhonchi, No Wheezing Extremity: Normal ROM Neurological/Psych: Oriented x3 ED Course And Treatment - Laboratory Results Result Diagrams: 05/03/18 03:07 05/03/18 03:07 ECG: Interpreted By Me, Viewed By Me ECG Rhythm: Sinus Rhythm (75), Nonspecific Changes O2 Sat by Pulse Oximetry: 97 (on RA) Pulse Ox Interpretation: Normal - Radiology CXR: Interpreted by Me, Viewed By Me CXR Interpretation: No: Infiltrates, Fracture, Pnemothorax Progress Note: Bloodwork, urinalysis, CXR, EKG ordered and reviewed. Aspirin PO given. 4:47 AM repeat ekg nsr 79 bpm, nsstt changes, unchanged Medical Decision Making Medical Decision Making: I considered the following diagnoses: acute coronary syndrome, pulmonary embolism, lower respiratory infection, aortic dissection/aneurysm, pneumothorax, pericarditis, esophagitis/GERD, zoster and esophageal rupture but found them to be unlikely based on the history, physical exam, and diagnostics. My conclusions regarding the unlikely diagnoses were based on: the absence of significant EKG abnormalities, the lack of suggestive x-ray findings, the absence of significant abnormalities on cardiac monitoring, the absence of asymmetric pulses,. Pt is chest pain free and wants to go home Upon provider reevaluation patient is feeling better, is medically stable, and requires no further treatment in the ED at this time. Patient will be discharged home . Counseling was provided and all questions were answered regarding diagnosis and need for follow up with dr wright. There is agreement to discharge plan. Return if symptoms persist or worsen. Disposition Counseled Patient/Family Regarding: Studies Performed, Diagnosis, Need For Followup - Disposition Disposition: HOME/ ROUTINE Disposition Time: 02:52 Condition: FAIR Additional Instructions: Please return if symptoms recur Instructions: Chest Pain (DC) - Clinical Impression Clinical Impression: Chest pain - Scribe Statement The provider has reviewed the documentation as recorded by the Scribe (Sasha Edwards) Provider Attestation: All medical record entries made by the Scribe were at my direction and personally dictated by me. I have reviewed the chart and agree that the record accurately reflects my personal performance of the history, physical exam, medical decision making, and the department course for this patient. I have also personally directed, reviewed, and agree with the discharge instructions and disposition.
[2018-05-03] MEDS ORDERED: Aspirin 325 mg EC Tablets PO STA (02:53)
[2018-05-03 03:15] LABS: BASO # 0.1 K/uL (0.0-0.2); BASO % 0.6 % (0.0-2.0); EOS # 0.1 K/uL (0.0-0.7); EOS % 1.3 % (0.0-4.0); HEMOGLOBIN 14.4 g/dL (12.0-18.0); LYMPH # 3.4 K/uL (1.0-4.3); LYMPH % 31.8 % (20.0-40.0); MEAN CELL VOLUME 83.1 fL (80.0-94.0); MEAN CORPUSCULAR HEMOGLOBIN 29.1 pg (27.0-31.0); MEAN PLATELET VOLUME 6.6 fL (7.2-11.7); MONO % 9.5 % (0.0-10.0); NEUT # 6.1 K/uL (1.8-7.0); NEUT % 56.8 % (50.0-75.0); RBC 4.94 Mil/uL (4.40-5.90); RED CELL DISTRIBUTION WIDTH 13.8 % (11.5-14.5); WHITE BLOOD COUNT 10.7 K/uL (4.8-10.8)
[2018-05-03 03:18] LABS: INR 1.1
[2018-05-03 03:28] LABS: URINE BILIRUBIN NEGATIVE (NEGATIVE); URINE BLOOD NEGATIVE (NEGATIVE); URINE CLARITY Clear (Clear); URINE COLOR Yellow (YELLOW); URINE GLUCOSE (UA) NORMAL (Normal); URINE LEUKOCYTE ESTERASE NEG Leu/uL (Negative); URINE PROTEIN NEGATIVE (NEGATIVE); URINE UROBILINOGEN NORMAL mg/dL (0.2-1.0)
[2018-05-03 03:43] LABS: ALB/GLOB RATIO 1.4 (1.0-2.1); ALBUMIN 4.1 g/dL (3.5-5.0); ALT/SGPT 30 U/L (21-72); AST/SGOT 19 U/L (17-59); BLOOD UREA NITROGEN 10 mg/dL (9-20); CALCIUM 8.9 mg/dl (8.6-10.4); GFR NON-AFRICAN AMERICAN > 60
[2018-05-03 03:44] LABS: B-TYPE NATRIURETIC PEPTIDE 25.8 pg/mL (0-450)
[2018-05-03 06:54] VITALS: BP 126/74; PULSE 88; RESP 14; TEMP 97.8
[2018-05-03 06:55] VITALS: O2SAT 97
--- NOTE | 2018-05-03 08:19 | RAD ---
Date of service: 05/03/2018 HISTORY: chest pain COMPARISON: Portable chest 10/27/2017. FINDINGS: LUNGS: No active pulmonary disease. PLEURA: No significant pleural effusion identified, no pneumothorax apparent. CARDIOVASCULAR: No aortic atherosclerotic calcification present. Normal cardiac size. No pulmonary vascular congestion. OSSEOUS STRUCTURES: No significant abnormalities. VISUALIZED UPPER ABDOMEN: Normal. OTHER FINDINGS: None. IMPRESSION: No interval acute cardiopulmonary disease appreciated.
--- NOTE | 2018-05-04 21:48 | CARD ---
APPROVED REPORT Date of service: 05/03/2018 EKG Measurement Heart [id number] RI [id number] <Conclusion> Normal sinus rhythm Normal ECG
--- NOTE | 2018-05-04 21:49 | CARD ---
APPROVED REPORT Date of service: 05/03/2018 EKG Measurement Heart [id number] W[place] [id number] <Conclusion> Normal sinus rhythm Normal ECG
== END 2018-05-03 07:01 | disposition home or self-care (01) ==
LOC: C.ER 02:41
DX: R07.9 Chest pain, unspecified (principal)
CPT/HCPCS: 71045; 80053; 81001; 82948; 83880; 84484; 85025; 85610; 85730; 93005; 96374; 99285; J1885